=== PATIENT | male | born 1965 | race Caucasian/White ===

== ENCOUNTER 2019-01-21 08:49 | Emergency (ER) | payer OTHER ==
[~2019-01-21] VITALS: Ht 185.4 cm; Wt 97.5 kg
[~2019-01-21 08:49] MED LIST: ASPIR 8181 MG PO; AUGMENTIN 875-1 EACH PO; CENTRUM SILVER1 EAC2 PO; FISH OIL 1,4001 EACH PO; HYCET 7.5 MG-3473 ML PO; IBUPROFEN 600600 M1 PO; LEVOTHYROXIN0.088 MG PO; LEVOTHYROXIN0.112 M1 PO; LIPITOR 20 MG T20 M1 PO; NYQUIL D COLD295 ML; OSELB75 PO; PERCOCET 10-321 EACH; PHENERGAN 25 MG25 M1 PO; PREDNISONE50 MG PO; PROMETHAZINE-C120 ML PO; PROVENTIL HFA6.7 G1 INH; ULTRAM 50MG TAB50 MG PO; UNICOMPLEX M TA1 TA1 PO; VITAMIN B125000 MCG PO; VITAMIN D2000 UNIT; VITAMIN D31000 UNI2 PO; VITAMINC500 PO; ZOFRAN ODT4 MG PO; ZPAK PO; [UNRECOGNIZED DRUG - OTHER]
[2019-01-21] MEDS ORDERED: TESSALON PERLE100 MG PO (09:32)
[2019-01-21 10:15] VITALS: BP 138/85
== END 2019-01-21 10:15 | disposition home or self-care (01) ==
LOC: ER 08:49
DX: J06.9 Acute upper respiratory infection, unspecified (principal); R42 Dizziness and giddiness; Z79.899 Other long term (current) drug therapy; Z90.49 Acquired absence of other specified parts of digestive tract; Z79.82 Long term (current) use of aspirin